=== PATIENT | female | born 1960 | race Caucasian/White ===

== ENCOUNTER → 2018-06-15 | Outpatient (CLI) | payer BC ==
--- NOTE | 2018-06-15 17:38 | CONS ---
CONSULTATION DATE OF SERVICE: 06/15/2018 This patient is a 57-year-old lady who has been evaluated in the sleep center for possible obstructive sleep apnea-hypopnea syndrome. HISTORY OF PRESENT ILLNESS/SLEEP-WAKE EVALUATION: Patient's usual sleep schedule on working days is from 11 p.m. to 6:15 a.m. and on weekends from 11 p.m. to 8 a.m. Sometimes it takes longer than 30 minutes to fall asleep, although she does not have a TV in the bedroom. She sleeps on the side and stomach. Patient prefers not to sleep on her back. She snores and make may wake up from sleep with nocturia. She has a significant amount of movements at night. No history of hypnagogic hallucinations, sleep paralysis or cataplexy. [place] Sleepiness Scale is 5. PAST MEDICAL HISTORY: 1. Brain aneurysm on the left side. 2. Left-sided vision problems. 3. Glaucoma. PAST SURGICAL HISTORY: 1. Surgical treatment of brain aneurysm. 2. Surgery for treatment of Achilles tendinitis of right leg. MEDICATIONS: Timolol eye drops. SOCIAL HISTORY: Negative for smoking. Alcohol consumption occasional. FAMILY HISTORY: Hypertension, heart problems, hyperlipidemia, stroke, arthritis, asthma, bronchitis, lung problems, pneumonia, ulcers, diabetes. PHYSICAL EXAMINATION: GENERAL A pleasant 57-year-old lady without distress. [place]: [place] [address], HR 86, RR 16, height 5 feet 2-1/2 inches, weight 188.6, BMI 33.8. Temperature 98.0. Oxygen saturation at room air 98%. HEENT: PERRLA, EOMI. Evaluation of oropharynx showed tongue protrudes midline; low position of soft palate. NECK: Supple. No JVD. Thyroid is not palpable. Small nasal passages. Wide neck; 17 inches in circumference. LUNGS: Clear to percussion and to auscultation. Good air exchange. No wheezing or rhonchi. HEART: S1, S2 regular. No murmurs, gallops or rubs. ABDOMEN: Slightly obese. EXTREMITIES : No clubbing or cyanosis. DIRECTOR AIRPORT OPERATIONS: Awake, alert, and oriented X3. Cranial nerves 2 to 7 intact. There is no fasciculation or atrophy. noted. No focal deficits observed. IMPRESSION: 1. Snoring, low position of soft palate, significant amount of movements at night, patient prefers not to sleep on the back position, wide neck 17 inches in circumference; possible obstructive sleep apnea-hypopnea syndrome. 2. Increased eye pressure. 3. History of brain aneurysm on the left side, status post surgical treatment. 4. Status post surgical treatment of Achillis tendinitis of right leg. PLAN: 1. Sleep study for evaluation of patient's breathing during sleep. We will start with a home sleep apnea test. 2. Polysomnography for evaluation of patient's breathing during sleep. 3. CPAP/BiPAP titration if sleep study confirms obstructive sleep apnea-hypopnea syndrome. 4. Preferable position during sleep on the side. 5. No driving if patient feels any sleepiness. Patient is aware of civil and criminal liability for unsafe driving. 6. I will see patient for follow-up visit to explain results of testing and following plan. Thank you very much for referring this patient for consultation. Sincerely, Leonel Garcia MD, PhD, FAASM Diplomat of [place] [employer] Specialties [place] Board [employer] Medicine Director Law Enforcement of [facility] [place] MMODL / [place]IN[place]: [id number] /
== END | disposition home or self-care (01) ==
LOC: SLEEP 16:27
PROVIDERS: ATTEND Internal Medicine
DX: R06.83 Snoring (principal); M27.8 Other specified diseases of jaws; R35.1 Nocturia; H57.8 Other specified disorders of eye and adnexa; H54.7 Unspecified visual loss; Z86.79 Personal history of other diseases of the circulatory system; Z98.890 Other specified postprocedural states; Z86.69 Personal history of other diseases of the nervous system and sense organs
CPT/HCPCS: 99211

== ENCOUNTER → 2018-11-02 | Outpatient (CLI) | payer BC ==
--- NOTE | 2018-11-02 17:35 | PN ---
PROGRESS NOTE DATE OF SERVICE: 11/02/2018 This patient is a 58-year-old lady who has been followed in Sleep Center for treatment of obstructive sleep apnea-hypopnea syndrome. Recently the patient had a home sleep apnea test which documented severe sleep apnea. After that, the patient had CPAP titration and was started on treatment with CPAP. She was able to use the equipment practically every night for the whole night. A few days ago she developed an episode of nasal bleed. After the bleeding she started to use her machine again; there was no problem for the last several nights. [place] Sleepiness Scale today is 2. Patient sleeps better with the machine. She does not wake up from sleep any more. I checked her CPAP unit. Usage is 28/30 nights and 23/30 nights for more than 4 hours. Average usage is 6.6 hours. Pressure is 7 cm of water. Leak is only 1 L/minute. Apnea- hypopnea index reading from the machine is 1.4. MEDICATIONS: Ophthalmic eye drops, including timolol. PHYSICAL EXAMINATION: GENERAL: A pleasant patient in no distress. VITAL SIGNS: BP 119/82, HR 94, RR 18, weight 175.4, temperature 97.3, oxygen saturation at room air 98%. HEENT: PERRLA, EOMI. Evaluation of oropharynx showed tongue protrudes midline. Extremely low position of soft palate. NECK: Supple. No JVD. Thyroid is not palpable. LUNGS: Clear to percussion and to auscultation. Good air exchange. No wheezing or rhonchi. HEART: S1, S2 regular. No murmurs, gallops or rubs. ABDOMEN: Obese. EXTREMITIES: No clubbing or cyanosis. MUD MIXER OPERATOR: Awake, alert, and oriented X3. Cranial nerves 2 to 7 intact. There is no fasciculation or atrophy. noted. No focal deficits observed. IMPRESSION: 1. Severe obstructive sleep apnea-hypopnea syndrome; apnea-hypopnea index 41.3 with oxygen desaturation to 74%, fully controlled with CPAP. The patient demonstrated great compliance with treatment, benefitting from treatment. 2. Obesity. 3. Mild periodic limb movements were documented during titration. 4. Increased eye pressure. 5. History of brain aneurysm on the left side, status post surgical treatment. 6. Status post surgical treatment for Achilles tendinitis of the right leg. PLAN: 1. I will decrease pressure in CPAP unit down to 5 cm of water. I reviewed results of her previous sleep study, and that pressure should be sufficient for the patient. I am doing this, considering episodes of her bleeding from the nose. 2. Continue to use CPAP equipment every night. 3. Patient may use AYR gel to the nose. 4. No driving if feeling any sleepiness. 5. Sleep hygiene with regular time in bed for at least 8 hours. Thank you very much for allowing me to participate in the management of your patient. Sincerely, Leonel Garcia MD, PhD, FAASM Diplomat of [place] [employer] Specialties [place] Board of Internal Medicine Facing End Trimmer of [facility] [place] MMODL / IJN: [id number] /
== END | disposition home or self-care (01) ==
LOC: SLEEP 16:30
PROVIDERS: ATTEND Internal Medicine
DX: G47.33 Obstructive sleep apnea (adult) (pediatric) (principal); E66.9 Obesity, unspecified; G47.61 Periodic limb movement disorder; H40.059 Ocular hypertension, unspecified eye; Z86.79 Personal history of other diseases of the circulatory system; Z98.890 Other specified postprocedural states; Z87.39 Personal history of other diseases of the musculoskeletal system and connective tissue; Z99.89 Dependence on other enabling machines and devices; Z79.899 Other long term (current) drug therapy

== ENCOUNTER → 2019-01-25 | Outpatient (CLI) | payer BC ==
--- NOTE | 2019-01-25 18:07 | PN ---
PROGRESS NOTE DATE OF SERVICE: 01/25/2019 58-year-old lady who has been followed in the Sleep Center for treatment of obstructive sleep apnea-hypopnea syndrome. Last time I saw the patient in the end of October of 2018. At that time, patient was started on treatment with CPAP, but developed nasal bleed. At the impression, her machine at that time was 7 cm of water. I decreased pressure in the machine to 5 cm of water and today is followup visit while she is using machine on the pressure 5 cm. The patient is able to use machine without problems nor any discomfort related to the nose. No any discharges from the nose, nor any nasal bleed. She sleeps well with the machine. [place] Sleepiness Scale is 2. I checked CPAP unit. Usage is 23/30 nights more than 4 hours. Average usage is 6.5 hours. Leak only 1 L/minute. CPAP pressure is 4.9 cm of water. Apnea-hypopnea index is 2.4, which is totally normal. MEDICATIONS: Eye drops including timolol. PHYSICAL EXAM: Patient in no distress. BP 113/72, HR 79, RR 16, height 5 feet 2 and one third inches, weight 194.8 pounds, body mass index 33.0, temperature 97.9. Oxygen saturation at room air 97%. Oropharynx showed extremely low position of soft palate. Mallampati 4. ABDOMEN: Obese. Neck: Supple, no JVD. Thyroid is not palpable. LUNGS Clear to percussion and to auscultation. Good air exchange. No wheezing or rhonchi. HEART S1, S2 regular. No murmurs, gallops, or rubs. ABDOMEN: Obese. Soft and nontender. Bowel sounds are present. No organomegaly appreciated. EXTREMITIES No clubbing or cyanosis. DIESEL TRUCK DRIVER Awake, alert, and oriented X3. Cranial nerves 2 to 7 intact. There is no fasciculation or atrophy. noted. No focal deficits observed. IMPRESSION: 1. Severe obstructive sleep apnea-hypopnea syndrome apnea-hypopnea index 41.3 with oxygen desaturation to 74% on full control with CPAP at the pressure of 5 cm of water. No any side effects. The patient demonstrated good compliance with treatment benefitting from treatment. 2. Obesity. 3. Increased eye pressure. 4. History of brain aneurysm on the left side, status post surgical treatment. 5. Status post surgical treatment for tendinitis of the right leg. PLAN: 1. Patient will continue to use CPAP equipment every night for the whole night. 2. Losing weight. 3. Sleep hygiene with regular time in bed for at least 8 hours. 4. No driving if feels any sleepiness. 5. We will maintain all necessary prescriptions for CPAP unit including mask, tube, filters. Thank you very much for allowing me to participate in management of your patient. Sincerely, Leonel Garcia MD, PhD, FAASM Diplomat of [place] Board [employer] Specialties [place] Board of Internal Medicine Industrial Real Estate Agent of [facility] [place] MMODL / IJN: [id number] /
== END | disposition home or self-care (01) ==
LOC: SLEEP 16:44
PROVIDERS: ATTEND Internal Medicine
DX: G47.33 Obstructive sleep apnea (adult) (pediatric) (principal); E66.9 Obesity, unspecified; H40.059 Ocular hypertension, unspecified eye; Z86.79 Personal history of other diseases of the circulatory system; Z98.890 Other specified postprocedural states; Z99.89 Dependence on other enabling machines and devices; Z68.33 Body mass index [BMI] 33.0-33.9, adult

== ENCOUNTER → 2022-07-22 | Outpatient (CLI) | payer BC ==
--- NOTE | 2022-07-22 15:22 | P.SLEEP ---
History of Present Illness DATE: 07/22/2022 CONSULTATION/NEW PATIENT EVALUATION HISTORY OF PRESENT ILLNESS/SLEEP-WAKE EVALUATION: 62year old ladyhad been gabe luated in the sleep center forobstructive sleep apnea hypopnea syndrome. Patient has history of obstructive sleep apnea, last time I saw her in January 2019. Patient continued to use sure CPAP equipment every night. I checked sure CPAP unit. CPAP pressure is 5 cm of water usage is about 80% of nights more than 4 hours, average 7.9 hours per night. Leak is 5 L/m which is in normal range. Apnea hypopnea index is 2.3 which is normal SLEEP SCHEDULE: Usually sleep schedule on weekdays from 11 PM to 6 AM, during days off from midnight until 8 AM. FALLING ASLEEP: Sometimes patient has problems with falling asleep, used to repeat in bedroom. DURING SLEEP: Patient may wake up from sleep up to 23 times without episodes of nocturia. No snoring with the usage of CPAP No history of hypnogogical hallucinations, sleep paralysis, or cataplexy. DURING THE DAY/WAKE STATE: No significant daytime sleepiness. [place] sleepiness scale is 3. Patient doesn't take naps. PAST MEDICAL HISTORY: Increased eye pressure, hyperlipidemia. PAST SURGICAL HISTORY: Surgical treatment of brain aneurysm on the left side, surgery for tendinitis of right leg. MEDICATIONS: Atorvastatin 40 mg once a day, timolol eyedrops. SOCIAL HISTORY: Negative for smoking, alcohol consumption occasional. FAMILY HISTORY: Hypertension, heart problems, hyperlipidemia, diabetes. REVIEW OF SYSTEMS: Episodes of awakenings from sleep. No fevers. No double vision. No recent chest pain. No shortness of breath. No abdominal pain. No bleeding episodes. No blood in urine. No seizure episodes. PHYSICAL EXAMINATION: GENERAL: A pleasant patient without any distress. VITAL SIGNS: BP 122/82, HR 87, RR 16, weight 185.4 pounds, height 5 foot 3-1/4 inches, body mass index 32. HEENT: PERRLA, EOMI. Evaluation of oropharynx showed tongue protrudes midline, low position of soft palate Mallampati 3. NECK: Supple. No JVD. Thyroid is not palpable. 17-1/2 inches in circumference. LUNGS: Clear to percussion and to auscultation. Good air exchange. No wheezing or rhonchi. HEART: S1, S2 regular. No murmurs, gallops or rubs. ABDOMEN: Soft and nontender. Bowel sounds are present. No organomegaly appreciated. EXTREMITIES: No clubbing or cyanosis. WASTE MANAGEMENT ENGINEER: Awake, alert, and oriented x3. Cranial nerves 2 to 7 intact. There is no fasciculation or atrophy noted. No focal deficits observed. ASSESSMENT: 1. Obstructive sleep apnea-hypopnea syndrome for many years. Patient demonstrated the good compliance with the CPAP treatment. Normal respiration on CPAP. 2. Mild obesity body mass index 32. 3 hyperlipidemia. 4. Increased eye pressure. 5 history of brain aneurysm on the left side, status post surgical treatment. 6. Status post surgical treatment for tendinitis of the right leg. PLAN: 1. Continue treatment with CPAP every night for the whole night 2. Prescription fullness surgery CPAP supplies including atrophy. 10 extra small nasal pillow mask, tube, filters 3. Preferable position during sleep on the side. 4. No driving if patient feels any sleepiness. Patient is aware of civil and criminal liability for unsafe driving. 5. Sleep hygiene with regular sleep time for at least 7.5-8 hours. 6. Watching weight. 7. Follow up visit in 6 months or earlier if patient has any problems Thank you very much for referring this patient for consultation. Sincerely, Leonel Garcia MD, PhD, FAASM. Diplomat of [place] Board of Sleep Medicine, Sleep Medicine Board by [place] Board of Medical Specialities Citizen [place] Board of Internal Medicine Measurement And Sensing Technician of [facility] [place] [facility] - Sleep Note Sleep Note: Temperature: Pulse Rate: Respiratory Rate: Blood Pressure: SpO2: Height: Weight: BMI: Neck Circumference:
== END ==
LOC: SLEEP 14:40
PROVIDERS: ATTEND Internal Medicine
DX: G47.33 Obstructive sleep apnea (adult) (pediatric) (principal); Z99.89 Dependence on other enabling machines and devices; E66.9 Obesity, unspecified; Z68.32 Body mass index [BMI] 32.0-32.9, adult; E78.5 Hyperlipidemia, unspecified; H40.059 Ocular hypertension, unspecified eye; Z98.890 Other specified postprocedural states; Z86.79 Personal history of other diseases of the circulatory system
CPT/HCPCS: 99211

== ENCOUNTER → 2023-02-09 | Outpatient (CLI) | payer BC ==
--- NOTE | 2023-02-09 15:34 | P.PN ---
Subjective DATE: 02/09/2023 FOLLOW UP VISIT. Patient with obstructive sleep apnea hypopnea syndrome return to sleep center for follow-up visit. Information from previous visit have been reviewed. Patient is using PAP equipment every night for the whole night, getting PAP supplies in time. The patient does not have significant problems with the mask, PAP unit and humidification. [place] sleepiness scale is 2, which is normal. I checked information from PAP unit and explaining to the patient. PAP unit pressure 5 cm H2O. Usage is 80 % for more then 4 hours, average 7.4 hours per night. Leak is perfect 0 l/m. Apnea Hypopnea Index is 3.1, which is normal. MEDICATIONS:1. Atorvastatin 40 mg once a day 2. Timolol eyedrops 3. Prednisone eyedrops During physical exam: GENERAL: A pleasant patient without any distress. VITAL SIGNS: BP 117/77, HR 90, RR 20, weight 188.4, temperature 97.4, oxygen saturation at room air 96 % . HEENT: PERRLA, EOMI.low position of soft palate, Mallapati 3. NECK: Supple. No JVD. LUNGS: Clear to percussion and to auscultation. Good air exchange. No wheezing or rhonchi. HEART: S1, S2 regular. ABDOMEN: Soft and nontender. Slightly obese EXTREMITIES: No clubbing or cyanosis. CLOTHING DESIGNER: Awake, alert, and oriented x3. No focal deficit. Impressions: 1. Obstructive sleep apnea-hypopnea syndrome. Patient demonstrated good compliance with treatment, benefiting from treatment. 2. Mild obesity. 3. Increased eye pressure. 4. History of brain aneurysm on the left side, status post the surgical treatment. 5. Status post the right leg tendinitis treatment. 6. Hyperlipidemia. Plan: 1. Continue using PAP equipment every night for the whole night. 2. To change air filter at least 1-2 times per month. 3. PAP unit should stay lower then position of the head. 4. Advised patient to remove all remaining water from humidifier canister daily and make it dry after each usage. Refill canister with fresh distilled water before each usage. 5. Sleep hygiene with regular time in bed for at least 8 hours. 6. Precautions related to driving. No driving if feel any sleepiness. 7. I will maintain prescription for PAP supplies including mask, tube, filters. 8. Watching and losing weight. 9. Follow up visit in 6 months or earlier if patient has any problems. Thank you very much for allowing me to participate in the management of your patient. Leonel Garcia MD, PhD, FAASM. Diplomat of [place] Board of Sleep Medicine, Sleep Medicine Board by [place] Board of Internal Medicine Automotive Drivability Technician of [facility] [place]
== END ==
LOC: SLEEP 14:52
PROVIDERS: ATTEND Internal Medicine
DX: G47.33 Obstructive sleep apnea (adult) (pediatric) (principal); E66.9 Obesity, unspecified; E78.5 Hyperlipidemia, unspecified; Z79.52 Long term (current) use of systemic steroids; Z79.899 Other long term (current) drug therapy; Z86.79 Personal history of other diseases of the circulatory system; Z98.890 Other specified postprocedural states; M76.71 Peroneal tendinitis, right leg; H40.059 Ocular hypertension, unspecified eye; Z99.89 Dependence on other enabling machines and devices
CPT/HCPCS: 99212